=== PATIENT | male | born 1965 | race Caucasian/White ===

== ENCOUNTER 2023-02-04 09:04 | Outpatient (CLI) | payer MEDICARE ==
[2023-02-04] MEDS ORDERED: Magnevist 469MG/ML 20 ML VIAL ONE (09:47)
== END 2023-02-04 09:05 | disposition home or self-care (01) ==
LOC: CSHMRI 09:04
PROVIDERS: ATTEND Family Medicine
DX: K86.89 Other specified diseases of pancreas (principal)
CPT/HCPCS: 74183